=== PATIENT | male | born 1970 | race Caucasian/White ===

== ENCOUNTER 2019-06-20 13:36 | Inpatient (IN) | payer BC ==
[2019-06-20] MEDS ORDERED: HYDROmorphone 0.5 MG/0.5 ML Syringe IVPUSH ONE (14:16)
--- NOTE | 2019-06-20 14:18 | EDM.PDOC ---
ED HPI GENERAL MEDICAL PROBLEM - General Chief Complaint: Abdominal Pain Stated Complaint: ABDOMINAL PAIN Time Seen by Provider: 06/20/19 14:00 Source of Information: Reports: Patient, Family History Limitations: Reports: No Limitations - History of Present Illness INITIAL COMMENTS - FREE TEXT/NARRATIVE: 49-year-old male with generalized abdominal pain, back pain, nausea and lightheaded. Pain is radiating up into the chest and is generalized abdominal pain. It started yesterday, however he fell off a ladder onto his side before the symptoms started but he did not volunteer that information until after the CAT scan. He is otherwise generally healthy. No nausea or vomiting, no diarrhea , no fever, he has some pain with breathing. No shortness of breath. Onset: Gradual (Symptoms have developed over the past 2-3 days) Associated Symptoms: Reports: Chest Pain, Malaise (Some pain radiating up from the abdomen to the chest). Denies: Confusion, Nausea/Vomiting Abdomen Pain Score (Numeric/FACES): 10 - Related Data Allergies Allergy/AdvReac Type Severity Reaction Status Date / Time latex Allergy Cannot Verified 06/20/19 13:54 Remember Home Meds: Home Meds Omeprazole 20 mg PO BID 02/17/14 [History] Past Medical History Gastrointestinal History: Reports: GERD Social & Family History - Tobacco Use Smoking Status *Q: Current Every Day Smoker Years of Tobacco use: 32 Packs/Tins Daily: 1 - Caffeine Use Caffeine Use: Reports: Coffee - Recreational Drug Use Recreational Drug Use: No ED ROS GENERAL - Review of Systems Review Of Systems: See Below Constitutional: Reports: Chills, Malaise. Denies: Fever HEENT: Reports: No Symptoms Respiratory: Reports: Pleuritic Chest Pain Cardiovascular: Reports: Chest Pain GI/Abdominal: Reports: Abdominal Pain, Nausea. Denies: Constipation, Diarrhea, Vomiting Musculoskeletal: Reports: Back Pain, Other (Left posterior chest pain) Neurological: Reports: Dizziness. Denies: Headache Psychiatric: Reports: No Symptoms ED EXAM, GI/ABD - Physical Exam Exam: See Below Exam Limited By: No Limitations General Appearance: Alert, Moderate Distress Eyes: Bilateral: Normal Appearance Head: Atraumatic Neck: Supple Respiratory/Chest: Rales (Bibasilar rales, decreased breath sounds on the left base) Cardiovascular: Regular Rate, Rhythm, Tachycardia (Mild tachycardia) GI/Abdominal Exam: Abnormal Bowel Sounds (hypoactive) Back Exam: Other (There is an abrasion on the right flank, and marked tenderness to palpation over the left flank and posterior chest with areas of crepitus) Extremities: Other (Superficial plaques of chronic psoriasis, also has tenderness of the anterior lateral aspect of the proximal left thigh but no significant bruising) Neurological: Alert, Oriented, No Motor/Sensory Deficits Psychiatric: Anxious Skin Exam: Warm, Dry, Other (Somewhat pasty complexion, mild diaphoresis) Course - Vital Signs Last Recorded V/S: Last Vital Signs Temp 100.3 F 06/21/19 08:01 Pulse 113 H 06/21/19 08:01 Resp 17 06/21/19 08:01 BP 126/72 06/21/19 08:01 Pulse Ox 91 L 06/21/19 06:00 - Orders/Labs/Meds Orders: Active Orders 24 hr Category Date Time Status PATIENT RETYPE [BBK] Stat Lab 06/20/19 14:28 Results RED BLOOD CELLS LP [BBK] Stat Lab 06/20/19 14:28 Results TYPE AND SCREEN [BBK] Stat Lab 06/20/19 14:28 Results Medication Orders Diphenhydramine HCl (Benadryl) 25 mg IVPUSH Q6H PRN PRN Reason: Itching Diphenhydramine HCl (Benadryl) 25 mg PO Q6H PRN PRN Reason: Itching Hydromorphone HCl (Dilaudid [place] 15 Mg In Ns 30 Ml) 15 mg IV ASDIRECTED KARLA; Protocol Last Admin: 06/20/19 18:12 Dose: 15 mg Dextrose/Lactated Ringer's (Dextrose 5%-Lactated Ringers) 1,000 mls @ 100 mls/ hr IV ASDIRECTED KARLA Last Admin: 06/21/19 02:43 Dose: 100 mls/hr Infusion: 06/21/19 02:43 Dose: 100 mls/hr Admin: 06/20/19 18:10 Dose: 100 mls/hr Lactated Ringer's (Ringers, Lactated) 1,000 mls @ 50 mls/hr IV ASDIRECTED KARLA Last Admin: 06/21/19 05:06 Dose: 150 mls/hr Infusion: 06/21/19 00:52 Dose: 150 mls/hr Admin: 06/20/19 18:11 Dose: 150 mls/hr Naloxone HCl (Narcan) 0.04 mg IVPUSH Q3M PRN PRN Reason: Respiratory Depression Nicotine (Habitrol) 21 mg TRDERM DAILY KARLA Last Admin: 06/20/19 18:15 Dose: 21 mg Ondansetron HCl (Zofran) 4 mg IVPUSH Q6H PRN PRN Reason: Nausea/Vomiting Last Admin: 06/21/19 06:31 Dose: 4 mg Labs: Laboratory Tests 06/20/19 06/20/19 06/20/19 Range/Units 14:28 14:28 14:28 WBC 13.5 H (4.5-11.0) K/uL RBC 3.77 L (4.30-5.90) M/uL Hgb 11.7 L (12.0-15.0) g/dL Hct 34.5 L (40.0-54.0) % MCV 92 (80-98) fL MCH 31 (27-31) pg MCHC 34 (32-36) % Plt Count 247 (150-400) K/uL Neut % (Auto) 84 H (36-66) % Lymph % (Auto) 5 L (24-44) % George % (Auto) 11 H (2-6) % Eos % (Auto) 0 L (2-4) % Baso % (Auto) 0 (0-1) % Sodium 133 L (140-148) mmol/L Potassium 5.3 H (3.6-5.2) mmol/L Chloride 96 L (100-108) mmol/L Carbon Dioxide 21 (21-32) mmol/L Anion Gap 21.3 H (5.0-14.0) mmol/L BUN 29 H (7-18) mg/dL Creatinine 3.7 H* (0.8-1.3) mg/dL Est Cr Clr Drug Dosing 26.22 mL/min Estimated GFR (MDRD) 17 L (>60) Glucose 169 H (74-106) mg/dL Lactic Acid 3.7 H (0.4-2.0) mmol/L Calcium 7.9 L (8.5-10.1) mg/dL Total Bilirubin 0.3 (0.2-1.0) mg/dL AST 80 H (15-37) U/L ALT 49 (12-78) U/L Alkaline Phosphatase 65 (46-116) U/L Total Protein 6.9 (6.4-8.2) g/dL Albumin 3.6 (3.4-5.0) g/dL Globulin 3.3 (2.3-3.5) g/dL Albumin/Globulin Ratio 1.1 L (1.2-2.2) Amylase 16 L (25-115) U/L Lipase 104 (73-393) U/L Blood Type Gel Antibody Screen Crossmatch 06/20/19 Range/Units 14:28 WBC (4.5-11.0) K/uL RBC (4.30-5.90) M/uL Hgb (12.0-15.0) g/dL Hct (40.0-54.0) % MCV (80-98) fL MCH (27-31) pg MCHC (32-36) % Plt Count (150-400) K/uL Neut % (Auto) (36-66) % Lymph % (Auto) (24-44) % George % (Auto) (2-6) % Eos % (Auto) (2-4) % Baso % (Auto) (0-1) % Sodium (140-148) mmol/L Potassium (3.6-5.2) mmol/L Chloride (100-108) mmol/L Carbon Dioxide (21-32) mmol/L Anion Gap (5.0-14.0) mmol/L BUN (7-18) mg/dL Creatinine (0.8-1.3) mg/dL Est Cr Clr Drug Dosing mL/min Estimated GFR (MDRD) (>60) Glucose (74-106) mg/dL Lactic Acid (0.4-2.0) mmol/L Calcium (8.5-10.1) mg/dL Total Bilirubin (0.2-1.0) mg/dL AST (15-37) U/L ALT (12-78) U/L Alkaline Phosphatase (46-116) U/L Total Protein (6.4-8.2) g/dL Albumin (3.4-5.0) g/dL Globulin (2.3-3.5) g/dL Albumin/Globulin Ratio (1.2-2.2) Amylase (25-115) U/L Lipase (73-393) U/L Blood Type O POSITIVE Gel Antibody Screen Negative Crossmatch See Detail Meds: Medications Generic Name Dose Route Start Last Admin Trade Name Julia PRN Reason Stop Dose Admin Diphenhydramine HCl 25 mg 06/20/19 18:02 Benadryl IVPUSH Q6H PRN Itching Diphenhydramine HCl 25 mg 06/20/19 18:02 Benadryl PO Q6H PRN Itching Hydromorphone HCl 15 mg 06/20/19 18:15 06/20/19 18:12 Dilaudid [place] 15 Mg In Ns 30 Ml IV 15 mg ASDIRECTED KARLA Administration Protocol Dextrose/Lactated Ringer's 1,000 mls @ 100 mls/hr 06/20/19 18:00 06/21/19 02: 43 Dextrose 5%-Lactated Ringers IV 100 mls/hr ASDIRECTED KARLA Administration Lactated Ringer's 1,000 mls @ 50 mls/hr 06/20/19 18:00 06/21/19 05:06 Ringers, Lactated IV 150 mls/hr ASDIRECTED KARLA Administration Naloxone HCl 0.04 mg 06/20/19 18:02 Narcan IVPUSH Q3M PRN Respiratory Depression Nicotine 21 mg 06/20/19 18:00 06/20/19 18:15 Habitrol TRDERM 21 mg DAILY KARLA Administration Ondansetron HCl 4 mg 06/20/19 18:02 06/21/19 06:31 Zofran IVPUSH 4 mg Q6H PRN Administration Nausea/Vomiting Discontinued Medications Generic Name Dose Route Start Last Admin Trade Name Julia PRN Reason Stop Dose Admin Dexamethasone Confirm 06/21/19 08:00 Dexamethasone Administered 06/21/19 08:01 Dose 4 mg .ROUTE .STK-MED ONE Fentanyl Confirm 06/21/19 08:00 Sublimaze Administered 06/21/19 08:01 Dose 250 mcg .ROUTE .STK-MED ONE Glycopyrrolate Confirm 06/21/19 08:00 Robinul Administered 06/21/19 08:01 Dose 1 mg .ROUTE .STK-MED ONE Hydromorphone HCl 0.5 mg 06/20/19 14:16 06/20/19 14:25 Dilaudid IVPUSH 06/20/19 14:17 0.5 mg ONETIME ONE Administration Hydromorphone HCl 1 mg 06/20/19 14:48 06/20/19 15:04 Dilaudid IVPUSH 06/20/19 14:49 1 mg ONETIME ONE Administration Hydromorphone HCl 1 mg 06/20/19 16:08 06/20/19 16:34 Dilaudid IV 06/20/19 18:00 1 mg Q2H PRN Administration PAIN Sodium Chloride 1,000 mls @ 1,000 mls/hr 06/20/19 14:30 06/20/19 15:37 Normal Saline IV 1,000 mls/hr ASDIRECTED KARLA Administration Sodium Chloride 100 mls @ 3 mls/sec 06/20/19 15:00 06/21/19 05:33 Normal Saline IV 06/20/19 18:00 3 mls/sec ASDIRECTED KARLA Administration Sodium Chloride 1,000 mls @ 1,000 mls/hr 06/20/19 15:45 06/20/19 16:43 Normal Saline IV 1,000 mls/hr ASDIRECTED KARLA Administration Dextrose/Lactated Ringer's 1,000 mls @ 150 mls/hr 06/20/19 17:45 Dextrose 5%-Lactated Ringers IV ASDIRECTED KARLA Sodium Chloride 76 mls @ 3 mls/sec 06/21/19 05:19 Normal Saline IV 06/21/19 05:20 ASDIRECTED STA Iodixanol 100 ml 06/21/19 05:18 06/21/19 05:33 Visipaque 320 IV 06/21/19 05:19 100 ml . DIRECTED STA Administration Iopamidol 150 ml 06/20/19 15:00 Isovue-300 (61%) IV 06/20/19 17:00 . DIRECTED KARLA Neostigmine Methylsulfate Confirm 06/21/19 08:00 Neostigmine Administered 06/21/19 08:01 Dose 5 mg .ROUTE .STK-MED ONE Ondansetron HCl Confirm 06/21/19 08:00 Zofran Administered 06/21/19 08:01 Dose 4 mg .ROUTE .STK-MED ONE Propofol Confirm 06/21/19 08:00 Diprivan 20 Ml Administered 06/21/19 08:01 Dose 200 mg .ROUTE .STK-MED ONE Rocuronium Dennehotso Confirm 06/21/19 08:00 Zemuron Administered 06/21/19 08:01 Dose 50 mg .ROUTE .STK-MED ONE Sodium Chloride 10 ml 06/20/19 15:00 06/20/19 17:02 Saline Flush FLUSH 06/20/19 15:01 Not Given ONETIME ONE Succinylcholine Chloride Confirm 06/21/19 08:00 Quelicin Administered 06/21/19 08:01 Dose 200 mg .ROUTE .STK-MED ONE - Re-Assessments/Exams Free Text/Narrative Re-Assessment/Exam: 06/20/19 15:45 IV was started, 1 L of normal saline was bolused and the patient was given 4 mg of Zofran and 0.5 mg of IV Dilaudid. CBC, CMP, amylase and lipase were obtained. An urgent abdominal CT scan without contrast was performed and he was found to have a splenic laceration with right posterior rib fractures. The patient then admitted he had fallen off of a ladder yesterday from a height of 6 to 7 feet. A trauma activation was then initiated. A second IV started. 06/20/19 15:48 Hemoglobin returned 13.7, kidney function showed acute kidney injury with a creatinine of 3.7 and GFR of 17. A CT with IV contrast will need to be repeated but he needs aggressive hydration initially and this was discussed with Dr. Morales. Patient will be hydrated aggressively over the next 2 hours, renal function and CBC will then be repeated. An additional milligram of IV Dilaudid was given for pain control and the patient was transferred to ICU. 2 units of red blood cells were typed and crossed anticipating anemia from ongoing blood loss or volume replacement with IV fluids. Departure - Departure Time of Disposition: 16:35 Disposition: Admitted As Inpatient 65 Clinical Impression: Contusion of thigh, left, Acute kidney injury Splenic laceration Qualifiers: Encounter type: initial encounter Qualified Code(s): S36.039A - Unspecified laceration of spleen, initial encounter Multiple fractures of ribs of left side Qualifiers: Encounter type: initial encounter Fracture type: closed Qualified Code(s): S22.42XA - Multiple fractures of ribs, left side, initial encounter for closed fracture - Discharge Information Sepsis Event Note - Evaluation Sepsis Screening Result: Possible Sepsis Risk - Focused Exam Date Exam was Performed: 06/21/19 Time Exam was Performed: 08:06 - My Orders Last 24 Hours: My Active Orders 06/20/19 14:28 PATIENT RETYPE [BBK] Stat RED BLOOD CELLS LP [BBK] Stat TYPE AND SCREEN [BBK] Stat - Assessment/Plan Last 24 Hours: My Active Orders 06/20/19 14:28 PATIENT RETYPE [BBK] Stat RED BLOOD CELLS LP [BBK] Stat TYPE AND SCREEN [BBK] Stat
[2019-06-20] MEDS: Sodium Chloride 0.9% 1,000 ML IV SCH ×2 (14:38→15:37)
[2019-06-20] MEDS ORDERED: HYDROmorphone 1 MG/ML Syringe IVPUSH ONE (14:48)
[2019-06-20] MEDS ORDERED: Sodium Chloride 0.9% 100 ML IV SCH (15:00)
[2019-06-20] MEDS ORDERED: Sodium Chloride 0.9% 10 ML Syringe FLUSH ONE (15:00)
[2019-06-20] MEDS ORDERED: Iopamidol 612 MG/ML 150 ML Bottle IV SCH (15:00)
--- NOTE | 2019-06-20 15:09 | CT ---
Abdomen Pelvis wo Cont CLINICAL HISTORY: Abdominal pain COMPARISON: None. TECHNIQUE: Axial tomographic images are obtained from the dome of the diaphragm to the pubic symphysis without IV contrast enhancement. No oral contrast was used. Auto dosage reduction and iterative reconstruction techniques employed. FINDINGS: The lung bases show patchy airspace disease bilaterally which is likely atelectasis from splinting. Patient has displaced fractures of the left the eighth, seventh and sixth ribs. There is emphysema in the chest wall. There is no evidence of pneumothorax. The liver has a normal contour. There is moderate peritoneal fluid with the increased density. This is felt to represent moderate to hemoperitoneum.. The gallbladder has a normal contour. The spleen is poorly defined and heterogeneous. There is likely splenic laceration or fracture. The pancreas appears normal. The retroperitoneal fat planes are fairly well preserved. The adrenal glands have a normal appearance. The kidneys show no stones or hydronephrosis. Nephric fat is ill-defined.. The aorta shows some atheromatous plaque without aneurysm. There is no suspicious retroperitoneal adenopathy. Bladder has a normal contour. IMPRESSION: Moderate abdominal pelvic hemoperitoneum Heterogeneous ill-defined spleen is likely due to splenic laceration. Postcontrast CT imaging is recommended Multiple left lateral rib fractures with air in the chest wall. There is no visible pneumothorax or hemothorax. Bibasal airspace disease is most likely atelectasis from splinting
[2019-06-20] MEDS ORDERED: Sodium Chloride 0.9% 1,000 ML IV SCH (15:45)
[2019-06-20] MEDS ORDERED: HYDROmorphone 1 MG/ML Syringe IV PRN (16:08)
[2019-06-20] MEDS ORDERED: Dextrose 5%-Lactated Ringers 1,000 ML IV SCH (17:45)
[2019-06-20] MEDS ORDERED: Naloxone 0.4 MG/ML SDV IVPUSH PRN (18:02)
[2019-06-20] MEDS ORDERED: diphenhydrAMINE 25 MG Cap PO PRN (18:02)
[2019-06-20] MEDS ORDERED: diphenhydrAMINE 50 MG/ML SDV IVPUSH PRN (18:02)
[2019-06-20] MEDS: Dextrose 5%-Lactated Ringers 1,000 ML IV SCH (18:10)
[2019-06-20] MEDS: Lactated Ringers 1,000 ML IV SCH (18:11)
[2019-06-20] MEDS: HYDROmorphone/Normal Saline 15 MG/30 ML PCA IV SCH (18:12)
[2019-06-20] MEDS: Nicotine 21 MG/24 Hr Patch TRDERM SCH (18:15)
[2019-06-21] MEDS: Dextrose 5%-Lactated Ringers 1,000 ML IV SCH ×3 (02:43→22:17)
[2019-06-21] MEDS: Lactated Ringers 1,000 ML IV SCH (05:06)
[2019-06-21] MEDS ORDERED: Iodixanol 652 MG/ML 100 ML Bottle IV STA (05:18)
[2019-06-21] MEDS: Ondansetron 4 MG/2 ML SDV IVPUSH PRN ×3 (06:31→20:11)
--- NOTE | 2019-06-21 06:44 | CRLCT ---
INDICATION: Follow-up splenic injury after fall. COMPARISON: None. TECHNIQUE: CT abdomen and pelvis with IV contrast. 100 cc of IV Omnipaque 300. FINDINGS: Left chest wall subcutaneous emphysema. Left 4th through 8th rib fractures. Bibasilar atelectasis/consolidation. Right lower lobe pulmonary nodule measuring 11 mm (series 2 image 1). The liver, gallbladder, pancreas adrenal glands are unremarkable. Heterogeneous hypoattenuating enhancement of the spleen with adjacent hyperdense hematoma formation involving greater than 50 percent of the surface area rib. The hematoma measures approximately 11 x 4.8 cm (series 2 image 63). Blood products extend is inferiorly along the pericolic gutter, and there is hemoperitoneum, with hyperdense/bloody ascites in the pelvis. Perihepatic hyperdense ascites/hemoperitoneum is also noted. Hansen catheter is present in the bladder. Fat containing inguinal hernias. No evidence of bowel obstruction. No lymphadenopathy in the abdomen or pelvis. Appendix is normal. Atherosclerosis of the abdominal aorta which is nonaneurysmal. Kidneys enhance symmetrically. No obstructing renal calculus or hydronephrosis. Degenerative changes at L5-S1 in the spine. IMPRESSION: 1. Splenic injury, with large hematoma, and blood products/hemoperitoneum extending into the pelvis. Spleen injury is at minimum a grade 3, possibly grade 4. 2. Multiple left rib fractures with left chest wall subcutaneous emphysema. 3. Bibasilar atelectasis/consolidation. 4. Right lower lobe pulmonary nodule measuring 11 mm. Recommend nonurgent evaluation chest CT. Alternative considerations include PET-CT or tissue sampling. Findings discussed with Dr. Morales at 6:40 a.m. on 06/21/2019. Please note that all CT scans at this facility use dose modulation, iterative reconstruction, and/or weight-based dosing when appropriate to reduce radiation dose to as low as reasonably achievable. Dictated by Choco Palmer MD @ Jun 21 2019 6:30AM Signed by Dr. Choco Palmer @ Jun 21 2019 6:42AM
[2019-06-21] MEDS ORDERED: Dexamethasone 4 MG/ML SDV ONE (08:00)
[2019-06-21] MEDS ORDERED: Neostigmine Methylsulfate 1 MG/ML 5 ML Syringe ONE (08:00)
[2019-06-21] MEDS ORDERED: Succinylcholine 200 MG/10 ML MDV ONE (08:00)
[2019-06-21] MEDS ORDERED: Glycopyrrolate 0.2 MG/ML 5 ML MDV ONE (08:00)
[2019-06-21] MEDS ORDERED: Propofol 200 MG/20 ML SDV ONE (08:00)
[2019-06-21] MEDS ORDERED: Rocuronium 50 MG/5 ML Vial ONE (08:00)
[2019-06-21] MEDS ORDERED: fentaNYL 250 MCG/5 ML SDV ONE (08:00)
[2019-06-21] MEDS ORDERED: Ondansetron 4 MG/2 ML SDV ONE (08:00)
[2019-06-21] MEDS ORDERED: Bupivacaine 0.5% 50 ML MDV ONE (08:29)
[2019-06-21] MEDS ORDERED: Lidocaine 1% with EPINEPHrine 1:100,000 50 ML MDV ONE (08:29)
[2019-06-21] MEDS ORDERED: Meropenem 500 MG SDV ONE (09:21)
[2019-06-21] MEDS ORDERED: Dextrose 5%-Lactated Ringers 1,000 ML IV SCH (10:00)
[2019-06-21] MEDS ORDERED: Ketamine 500 MG/5 ML MDV IV SCH (10:30)
[2019-06-21] MEDS ORDERED: Ketamine 50 MG in Sodium Chloride 0.9% 49.5 ML IV SCH (10:30)
[2019-06-21] MEDS ORDERED: ceFAZolin 2 GM in Premix Bag 1 BAG IV ONE (10:30)
[2019-06-21] MEDS: HYDROmorphone/Normal Saline 15 MG/30 ML PCA IV SCH (10:57)
--- NOTE | 2019-06-21 11:48 | CR ---
Abdomen 1V CLINICAL HISTORY: NG tube placement FINDINGS: Upright view of the chest and upper abdomen show an NG tube in the stomach. There is diffuse gaseous distention of small bowel and colon. There is patchy bilateral lower lobe infiltrates IMPRESSION: NG tube in the stomach Moderate gaseous distention of small bowel loops may represent ileus Bibasal infiltrates
[2019-06-21] MEDS ORDERED: Tranexamic Acid 1,000 MG in Sodium Chloride 0.9% 50 ML IV ONE (13:00)
[2019-06-21] MEDS ORDERED: Sodium Chloride 0.9% 250 ML ONE (13:18)
[2019-06-21] MEDS ORDERED: Sodium Chloride 0.9% 500 ML ONE (13:18)
--- NOTE | 2019-06-21 14:24 | CR ---
CHEST: Portable to 09/05/2019 at 2:01 PM CLINICAL HISTORY:Splenectomy COMPARISON:Flat plate earlier same day FINDINGS: Patient has an NG tube in place. There is less than optimal inspiration. There is patchy bibasal airspace disease. There is no significant pleural effusion or pneumothorax. There is a surgical drain in the left upper quadrant. There is persistent subcutaneous air in the left lateral chest wall. Patient has known left rib fractures Impression: NG tube in the stomach Surgical drain left upper quadrant. Patchy bibasal atelectasis without significant effusion or pneumothorax
[2019-06-21] MEDS: Pantoprazole 40 MG Vial IV SCH (15:21)
[2019-06-21] MEDS ORDERED: hydrOXYzine HCL 100 MG/2 ML SDV IM PRN (15:23)
[2019-06-21] MEDS: Nicotine 21 MG/24 Hr Patch TRDERM SCH (16:56)
[2019-06-21] MEDS: ceFAZolin 2 GM in Premix Bag 1 BAG IV SCH (18:26)
[2019-06-22] MEDS: ceFAZolin 2 GM in Premix Bag 1 BAG IV SCH ×2 (02:33→10:47)
[2019-06-22] MEDS: Dextrose 5%-Lactated Ringers 1,000 ML IV SCH ×2 (05:38→15:45)
[2019-06-22] MEDS: Nicotine 21 MG/24 Hr Patch TRDERM SCH (08:08)
--- NOTE | 2019-06-22 09:09 | CR ---
CHEST: Portable to 06/22/2019 at 0422 CLINICAL HISTORY:Atelectasis, splenectomy COMPARISON:06/21/2019 FINDINGS: Patient is an NG tube in the stomach. There is persistent airspace disease in left lower lobe which has increased since prior study. There appears to be a small left effusion at this time. There is also some right lower lobe airspace disease. . Patient has multiple left rib fractures. Patient has undergone recent splenectomy with a drain in the left upper quadrant. IMPRESSION: Increased airspace is disease in the left lower lobe with persistent airspace disease in the right lower lobe. This most likely represents the atelectasis from splinting. Small left effusion
[2019-06-22] MEDS: HYDROmorphone/Normal Saline 15 MG/30 ML PCA IV SCH (09:51)
[2019-06-22] MEDS: Potassium Phos in 0.9 % NaCl 15 MMOL in Premix Bag 1 BAG IV SCH ×6 (11:36→17:50)
[2019-06-22] MEDS: Piperacillin/Tazobactam/Dext 3.375 GM in Premix Bag 1 BAG IV SCH ×2 (12:38→17:38)
[2019-06-22] MEDS: Linezolid 600 MG in Premix Bag 1 BAG IV SCH (14:22)
[2019-06-22] MEDS: Pantoprazole 40 MG Vial IV SCH (15:28)
[2019-06-22] MEDS: Ondansetron 4 MG/2 ML SDV IVPUSH PRN (17:12)
[2019-06-22] MEDS: diphenhydrAMINE 50 MG/ML SDV IVPUSH PRN (20:46)
[2019-06-23] MEDS: Piperacillin/Tazobactam/Dext 3.375 GM in Premix Bag 1 BAG IV SCH ×4 (00:01→18:12)
[2019-06-23] MEDS: Dextrose 5%-Lactated Ringers 1,000 ML IV SCH ×4 (00:01→22:51)
[2019-06-23] MEDS: Linezolid 600 MG in Premix Bag 1 BAG IV SCH ×2 (01:57→14:37)
[2019-06-23] MEDS: Potassium Phos in 0.9 % NaCl 15 MMOL in Premix Bag 1 BAG IV SCH ×6 (07:32→12:31)
[2019-06-23] MEDS: Acetaminophen 500 MG Tab PO SCH ×3 (08:13→20:15)
[2019-06-23] MEDS: Nicotine 21 MG/24 Hr Patch TRDERM SCH (08:13)
[2019-06-23] MEDS: Docusate Sodium 100 MG Cap PO SCH ×2 (08:13→20:16)
[2019-06-23] MEDS: Bisacodyl 5 MG Tab PO SCH ×2 (08:13→20:25)
[2019-06-23] MEDS: Metoclopramide 10 MG/2 ML SDV IVPUSH SCH ×3 (08:13→20:15)
[2019-06-23] MEDS: Ibuprofen 600 MG Tab PO SCH ×3 (10:10→21:55)
--- NOTE | 2019-06-23 10:20 | PN ---
DATE OF SERVICE: 06/22/2019 The patient had a T-max 100.6 yesterday and now it is down in the 99 range. O2 sats on 4 L nasal cannula are 93%. He still has a fair bit of productive cough. Chest x-ray does show some basilar atelectasis on the left side as one would expect. There is no evidence of any recurrent pneumothorax. NG output has been moderate. He has been on ice chips, but output overall is around 150 mL. He is maybe taking in 500 mL of ice chips, and so we will leave that in place for today. Urine output is quite good and creatinine is down to 1.0. Otherwise labs show a hemoglobin of 10.4. Phosphate is marginally low. We will give him some potassium phosphate today IV. Otherwise back down the IV rate, and at this point the main goal will be to work on pulmonary toilet and pain control with regard to the rib fractures and the abdominal incision. Georges Morales MD /[id number]
[2019-06-23] MEDS: diphenhydrAMINE 50 MG/ML SDV IVPUSH PRN (14:44)
--- NOTE | 2019-06-23 15:13 | PN ---
DATE OF SERVICE: 06/23/2019 The patient has developed a fever up in the 102 range yesterday afternoon and appears clinically, most likely, to have pneumonia. He has quite a bit of productive sputum. The gram stain from the sputum culture showed many wbc's and many gram-positive cocci. He presently is empirically on Zosyn and Zyvox. We will adjust those antibiotics as sensitivities become available, probably tomorrow. Otherwise, he has been hemodynamically stable. O2 sats are in the low 90s on 3 L nasal cannula. His NG tube came out. Given the amount of ice chips that he has taken, probably was not putting that much out, so we will try leaving that out. We will add some Reglan. This will also give us the opportunity to add oral Tylenol and ibuprofen to the pain control regimen. Phosphate is somewhat low, and we will give him some K-Phos today and back down somewhat on the IV rate and maximize activity and work with pulmonary toilet. Georges Morales MD /[id number]
[2019-06-23] MEDS: Pantoprazole 40 MG Vial IV SCH (16:32)
[2019-06-23] MEDS: HYDROmorphone/Normal Saline 15 MG/30 ML PCA IV SCH (18:29)
[2019-06-24] MEDS: Piperacillin/Tazobactam/Dext 3.375 GM in Premix Bag 1 BAG IV SCH ×5 (00:16→23:43)
[2019-06-24] MEDS: Linezolid 600 MG in Premix Bag 1 BAG IV SCH ×2 (01:02→14:06)
[2019-06-24] MEDS: Metoclopramide 10 MG/2 ML SDV IVPUSH SCH ×4 (01:02→20:27)
[2019-06-24] MEDS: Acetaminophen 500 MG Tab PO SCH ×4 (01:03→20:27)
[2019-06-24] MEDS: Ibuprofen 600 MG Tab PO SCH ×4 (03:48→22:22)
[2019-06-24] MEDS: Bisacodyl 5 MG Tab PO SCH ×2 (08:14→20:27)
[2019-06-24] MEDS: Docusate Sodium 100 MG Cap PO SCH ×2 (08:14→20:27)
[2019-06-24] MEDS: Nicotine 21 MG/24 Hr Patch TRDERM SCH (08:15)
--- NOTE | 2019-06-24 12:48 | PN ---
DATE OF SERVICE: 06/24/2019 The patient has been afebrile with stable vital signs. Oxygenation appears to be improving somewhat with O2 sats running in 89 to 90s on room air. Otherwise, urine output has been good and he has not had any flatus or bowel movement as of yet, but we will continue more or less an n.p.o. status. Pain control appeared to be somewhat better. Plan will be to discontinue Hansen catheter and transfer to the second floor today. We will hold on diet until bowels have moved or even passes quite a bit of gas, and then begin the diet at that point.. Otherwise, continue present antibiotics. No followup is noted in terms of his sputum cultures, so we will not fine-tune the antibiotics as of yet. The blood cultures of note are both negative. Otherwise, his labs look good. Georges Morales MD /[id number]
[2019-06-24] MEDS: Pantoprazole 40 MG Vial IV SCH (16:26)
[2019-06-24] MEDS ORDERED: Albuterol/Ipratropium 3.0-0.5 MG/3 ML Neb Soln NEB ONE (21:07)
[2019-06-24] MEDS: LORazepam 2 MG/ML SDV IVPUSH PRN ×2 (21:23→23:41)
[2019-06-25] MEDS: Linezolid 600 MG in Premix Bag 1 BAG IV SCH (01:33)
[2019-06-25] MEDS: Metoclopramide 10 MG/2 ML SDV IVPUSH SCH ×3 (03:17→07:39)
[2019-06-25] MEDS: Acetaminophen 500 MG Tab PO SCH ×2 (03:18→07:39)
[2019-06-25] MEDS: Ibuprofen 600 MG Tab PO SCH (03:18)
[2019-06-25] MEDS: Piperacillin/Tazobactam/Dext 3.375 GM in Premix Bag 1 BAG IV SCH (05:32)
[2019-06-25] MEDS ORDERED: Albuterol/Ipratropium 3.0-0.5 MG/3 ML Neb Soln NEB SCH (07:00)
[2019-06-25] MEDS ORDERED: Levofloxacin 500 MG Tab PO ONE (08:30)
[2019-06-25] MEDS: Bisacodyl 5 MG Tab PO SCH (08:45)
[2019-06-25] MEDS: Nicotine 21 MG/24 Hr Patch TRDERM SCH (08:45)
[2019-06-25] MEDS: Docusate Sodium 100 MG Cap PO SCH (08:45)
--- NOTE | 2019-06-26 12:43 | DISCH ---
FINAL DIAGNOSES: 1. Accidental fall resulting in: a. Multiple left rib fractures (left ribs 4 through 8). b. Probable pneumothorax (resolved at the time of the hospitalization). c. High-grade splenic injury. d. Minor laceration in left lobe of liver. e. Massive hemoperitoneum (3400 mL). 2. History of gastroesophageal reflux disease. 3. Tobacco dependence. 4. Postoperative pneumonia. OPERATIVE PROCEDURE: This was done on 06/21, exploratory laparotomy with evacuation of hemoperitoneum and: 1. Splenectomy. 2. Hepatorrhaphy. SUMMARY: This is a 49-year-old male who two days prior to presenting to the emergency room fell off the ladder onto his left side. It became increasingly uncomfortable and somewhat diaphoretic at times. Presented to the emergency room. Workup revealed a complex splenic injury. His creatinine was initially in the 3's, so IV contrast was not used initially. He was hydrated up and transfused overnight and the following morning his creatinine was down to 1.7. A CT scan was repeated which showed a very complex splenic injury along with the massive hemoperitoneum. He was also noted to have rib fractures, 4 through 8, on the left side and some subcutaneous emphysema. There was no evidence of any pneumothorax at any point during the hospitalization. As expected, he had small pneumothorax that resolved prior to coming to the hospital. Following the surgery, the patient had been hemodynamically stable. He did develop a postoperative pneumonia. The Gram stain showed gram-positive cocci, but the cultures did not grow, otherwise was called "normal upper respiratory mae." This morning, his hemoglobin was 10.2, white count has normalized. He has become afebrile and still having some productive sputum, but that is decreasing. He is tolerating the Tylenol and ibuprofen for pain control. He will be discharged to home on Levaquin 500 mg daily for seven days along with Tylenol 1000 mg q.i.d. p.r.n., and ibuprofen 600 mg q.i.d. p.r.n., and he will be instructed to continue to use the incentive spirometer, Acapella device. We will see him back in [facility] on 06/29/2019 with a CBC to check the hemoglobin level as well as the white blood count given his splenectomy status and chest x- ray to follow up on the pneumonia and rule out problems such as development of a pleural effusion. He will receive his initial immunizations at that appointment.
--- NOTE | 2019-06-27 13:23 | OR ---
DATE OF PROCEDURE: 06/21/2019 SURGEON: Georges Morales MD PREOPERATIVE DIAGNOSIS: Complex splenic injury with large volume hemoperitoneum. POSTOPERATIVE DIAGNOSIS: 1. Complex splenic injury with large volume hemoperitoneum. 2. Minor laceration to lateral aspect of left lobe of liver. OPERATIVE PROCEDURES: Exploratory laparotomy with evacuation of hemoperitoneum and: 1. Splenectomy (35419). 2. Hepatorrhaphy (17903). ANESTHESIA: General. INDICATIONS FOR PROCEDURE: A 49-year-old male, presenting with fall resulting in multiple rib fractures and a complex splenic laceration and large volume hemoperitoneum. Please see progress note dictated earlier. Plan is to proceed with exploratory laparotomy with a probable splenectomy and identification of any other injuries that might be present. DETAILS OF PROCEDURE: The patient was taken to the operating room. After general endotracheal anesthesia was induced, Hansen catheter was inserted, and the abdomen prepped and draped. A midline incision from the xiphoid to the umbilicus was made and carried down through the skin, subcutaneous tissue, fascia, and into the peritoneal cavity. A large amount of hemoperitoneum was identified. We first ascertained that there did not appear to be any significant active bleeding in the area of the spleen. At this point, then, the bloody clots were evacuated. Prior to any irrigation, a total of 3400 mL of blood clots was evacuated, indicating the patient had in excess of 50% volume of blood loss. At this point, the superior and lateral and inferior attachments to the spleen were divided with electrocautery along with blunt dissection. This allowed mobilization of the spleen upward, along with the distal pancreas. The splenic vessels, as well as the short gastric vessels, were then sequentially divided with BRADLY karthikeyan and the spleen delivered from the field. Examination of the spleen showed that the splenic artery and vein had been avulsed more or less at the branch level, i.e. not at the main artery and vein level, but more at the beginning of the substance of the spleen at the branch level. The patient also had 2 nearly full-thickness lacerations, likely associated with imprints of the ribs as they fractured upon fall. At that point, the tail of the pancreas and divided splenic artery and vein were inspected. No significant bleeding was noted. The patient had 1 additional injury noted that was a transverse laceration of the left lobe of the liver. This was not actively bleeding. This was repaired with sutures of 0 Vicryl stitch and augmented with some electrocautery. At that point, the remainder of the abdomen was examined, and no additional injuries were identifiable. The abdomen was irrigated with meropenem-containing saline solution. Two Erasmo-Pool drains were then placed through stab wounds in the left subcostal area. The area of the tail of the pancreas and divided splenic vessels was then reinforced with fibrin sealant and then drains were placed with 1 in the far dependent portion of the splenic fossa and the other more or less across the divided end of the splenic artery and vein and adjacent pancreas. The midline fascia was then approximated with #2 Vicryl stitch and skin with karthikeyan. Dressing was applied. The patient was taken to the recovery room in satisfactory condition. Prior to closure, the patient had bilateral transversus abdominis plane blocks placed also and was taken to the recovery room in satisfactory condition. He received 2 additional packed RBCs during the course of the procedure. Georges Morales MD /[id number]
--- NOTE | 2019-06-27 13:59 | PN ---
DATE OF SERVICE: 06/21/2019 This is a 49-year-old who fell 2 days ago on his left side. He did not come in into the hospital until yesterday afternoon having been brought by his after feeling quite weak and ill. Workup included a CT scan of the chest and abdomen which included 5 fractured ribs 4 through 8 on the left side, and a significantly large hemoperitoneum. His creatinine initially was in the 3 range and it was felt not safe to give the IV contrast at that point. The patient has remained hemodynamically stable overnight, receiving some transfusions. A 2nd CT was obtained this morning with his creatinine having gone down to 1.7 and the large urine output being established, and it was felt at that point safe to give the IV contrast. This showed a very complex splenic laceration, grade 3 to grade 4 per the radiologist, and a significant increase in the amount of hemoperitoneum appears to be evident on comparison to the previous CT scans. There was also some subcutaneous air seen which would be indicative of the patient having at least previously a pneumothorax. No pneumothorax could be seen on either CT scans, so I suspect he had 1 at the initial entry point which is now sealed, and the air within the pleural space has been resorbed leaving only the subcutaneous air present along the left chest wall. The patient's hemoglobin presently is 8.5, and with him being hemodynamically stable at this point, I think the plan will be to proceed with transfusion with 2 additional units of packed RBCs, and then proceed with an open laparotomy and probable splenectomy. The patient is already developing significant atelectasis. He is a heavy smoker and would be at risk for significant pulmonary complications given the rib fractures. Given this, we will probably proceed with a splenectomy which will allow early mobilization without concern of additional splenic bleeding. The potential risks of the procedure were reviewed with the patient and his who is 1 of the [facility] nurses and they wished to proceed. The surgery will be undertaken later on this morning after the 2 units of packed RBCs have been infused. With regard to the potential pneumothorax, Anesthesia was advised of this and will have a chest tube available in the operating room and prep the left side of the chest as well as the abdomen in the event that there are any signs of tension pneumothorax developing intraoperatively at which time a chest tube would be placed. Georges Morales MD /[id number]
== END 2019-06-25 09:28 | disposition home or self-care (01) | DRG 911 ==
LOC: JP.ED 13:36 → JP.ICU 15:48 → JP.MS 06-24 09:03
PROVIDERS: ADMIT Surgery; ATTEND Physician Assistant Medical
PROC: 07BP0ZZ Excision of Spleen, Open Approach (ICD-10-PCS; principal; 2019-06-21)
PROC: 0FQ20ZZ Repair Left Lobe Liver, Open Approach (ICD-10-PCS; 2019-06-21)
PROC: 0DCW0ZZ Extirpation of Matter from Peritoneum, Open Approach (ICD-10-PCS; 2019-06-21)
DX: S36.039A Unspecified laceration of spleen, initial encounter (principal); S22.42XA Multiple fractures of ribs, left side, initial encounter for closed fracture; S36.114A Minor laceration of liver, initial encounter; S27.0XXA Traumatic pneumothorax, initial encounter; W11.XXXA Fall on and from ladder, initial encounter; K21.9 Gastro-esophageal reflux disease without esophagitis; F17.210 Nicotine dependence, cigarettes, uncomplicated; S70.12XA Contusion of left thigh, initial encounter; N17.9 Acute kidney failure, unspecified; J95.89 Other postprocedural complications and disorders of respiratory system, not elsewhere classified; J98.11 Atelectasis; K66.1 Hemoperitoneum; T79.7XXA Traumatic subcutaneous emphysema, initial encounter; R91.1 Solitary pulmonary nodule; Z91.040 Latex allergy status; Z79.899 Other long term (current) drug therapy; Y93.89 Activity, other specified; Y92.89 Other specified places as the place of occurrence of the external cause
CPT/HCPCS: 36415; 36430; 51701; 51702; 51703; 71045; 71045-26; 74018; 74018-26; 74176; 74176-26; 74177; 80048; 80053; 81001; 82150; 82565; 83605; 83690; 83735; 84100; 85025; 85027; 85610; 86850; 86900; 86901; 86920; 86922; 87040; 87070; 87205; 88305; 94640; 94667; 94762; 96361; 96374; 96376; 99285-25; A9270-GY; C9113; J0171; J0330; J0690; J1100; J1170; J1200; J2020; J2060; J2185; J2405; J2543; J2704; J2710; J2765; J2795; J3010; J3490; J7030; J7040; J7050; J7120; J7121; J7620-GY; P9016

== ENCOUNTER 2021-02-04 06:22 | Day surgery (SDC) | payer BC ==
[2021-02-04] MEDS ORDERED: fentaNYL 100 MCG/2 ML SDV ONE (07:09)
[2021-02-04] MEDS ORDERED: Midazolam 1 MG/ML 2 ML SDV ONE (07:09)
[2021-02-04] MEDS ORDERED: Propofol 200 MG/20 ML SDV ONE ×2 (07:09→07:48)
[2021-02-04] MEDS ORDERED: Lactated Ringers 1,000 ML IV SCH (07:30)
[2021-02-04] MEDS ORDERED: Glycopyrrolate 0.2 MG/ML 2 ML SDV IVPUSH ONE (07:30)
--- NOTE | 2021-02-11 21:30 | OR ---
DATE OF PROCEDURE: 02/04/2021 SURGEON: Georges Morales MD PREOPERATIVE DIAGNOSES: 1. History of Buck's esophagus. 2. Indications for screening colonoscopy. OPERATIVE PROCEDURE: 1. Esophagogastroduodenoscopy with: a. Biopsies of esophagogastric junction. b. Biopsies of antrum for CLOtest. 2. Flexible colonoscopy. ANESTHESIA: IV sedation. INDICATION FOR PROCEDURE: The patient is presenting for a followup upper endoscopy for surveillance of Buck's esophagus. Presently, he is on 40 mg of omeprazole daily and with this has good symptom control. Also meets criteria for screening colonoscopy with biopsies and/or polypectomy as indicated. Potential risks of the procedure including bleeding and perforation were discussed and the patient wishes to proceed. DETAILS OF PROCEDURE: The patient was taken to the operating room, placed in a left lateral decubitus position. IV sedation was administered after which the upper GI endoscope was passed orally through the length of the esophagus, into the stomach with retroflexion view of the fundus, and thereafter through the pyloric channel, and into the proximal duodenum. Findings included normal hypopharynx, larynx, upper esophageal sphincter, and esophageal body. At the EG junction, a moderate hiatal hernia measuring 2 or 3 cm was present. This was associated with minimal inflammation at esophagogastric junction. There was some upward extension of the gastroesophageal junction mucosal line consistent with history of Buck's esophagus. No plaquing, stricturing, or other signs of neoplastic change were noted. The remainder of the stomach and duodenum to the junction of the third and fourth portions were unremarkable. At this point, biopsies were obtained from the antrum and sent for CLOtest to assess the patient's H. pylori status. Multiple biopsies were obtained from the area of the esophagogastric junction focusing on the areas of columnar mucosa. Minimal bleeding from the biopsy sites was seen and the procedure then concluded. Attention was then taken to the colonoscopy. Initial digital rectal exam was performed, it was unremarkable. Colonoscope was then passed into the rectum with retroflexion revealing uncomplicated hemorrhoidal columns. The scope was then eventually passed to the cecum. The prep was good, only a small amount of liquid stool was present. To that level, no abnormalities were noted. There were no diverticula, no areas of colitis, no polyps or other signs of neoplasia. The scope was then withdrawn, the above findings reconfirmed, and the procedure then concluded. Recommendation would be to repeat the upper endoscopy in 2 years for surveillance of Buck's esophagus and a colonoscopy in 10 years. Georges Morales MD /[id number]
== END 2021-02-04 09:38 | disposition home or self-care (01) ==
LOC: JP.SDS 06:22
PROVIDERS: ATTEND Surgery
DX: Z12.11 Encounter for screening for malignant neoplasm of colon (principal); K22.70 Barrett's esophagus without dysplasia; K44.9 Diaphragmatic hernia without obstruction or gangrene; K64.9 Unspecified hemorrhoids; F17.210 Nicotine dependence, cigarettes, uncomplicated; Z88.8 Allergy status to other drugs, medicaments and biological substances; Z91.040 Latex allergy status
CPT/HCPCS: 43239; 45378; 87081; 88305; J2250; J2704; J3010; J3490; J7120

== ENCOUNTER 2024-02-04 06:17 | Day surgery (SDC) | payer BC ==
[2024-02-04] MEDS: Sodium Chloride 0.9% 1,000 ML IV SCH (06:57)
[2024-02-04] MEDS ORDERED: fentaNYL 100 MCG/2 ML SDV ONE (07:19)
[2024-02-04] MEDS ORDERED: Propofol 200 MG/20 ML SDV ONE (07:22)
== END 2024-02-04 08:58 | disposition home or self-care (01) ==
LOC: JP.SDS 06:17
PROVIDERS: ATTEND Surgery
DX: K22.70 Barrett's esophagus without dysplasia (principal); K21.9 Gastro-esophageal reflux disease without esophagitis; K22.89 Other specified disease of esophagus; Z91.040 Latex allergy status; Z88.8 Allergy status to other drugs, medicaments and biological substances
CPT/HCPCS: 00731; 43239; J2704; J3010; J7030; 88305

== ENCOUNTER 2025-03-05 20:11 | Emergency (ER) | payer BC ==
[2025-03-05 20:49] LABS: BASOPHILS ABSOLUTE AUTO 0.15 K/uL (0.00-0.10); BASOPHILS PERCENT AUTO 1.1 % (0.1-1.3); EOSINOPHILS ABSOLUTE AUTO 0.48 K/uL (0.00-0.40); EOSINOPHILS PERCENT AUTO 3.5 % (0.0-5.4); IMMATURE GRAN ABSOLUTE AUTO 0.09 K/uL (0.00-0.23); IMMATURE GRAN PERCENT AUTO 0.7 % (0.0-0.7); LYMPHOCYTES ABSOLUTE AUTO 2.43 K/uL (0.8-3.3); LYMPHOCYTES PERCENT AUTO 17.6 % (11.4-47.7); MONOCYTES ABSOLUTE AUTO 2.46 K/uL (0.20-0.90); MONOCYTES PERCENT AUTO 17.9 % (3.3-12.6); NEUTROPHILS ABSOLUTE AUTO 8.16 K/uL (1.0-7.6); NEUTROPHILS PERCENT AUTO 59.2 % (40.0-78.1); PLATELET COUNT,PLT 337 K/uL (130-375); RED BLOOD CELL COUNT 4.92 M/uL (4.14-5.76); WHITE BLOOD CELL COUNT,WBC 13.8 K/uL (3.2-11.0)
[2025-03-05] MEDS: Sodium Chloride 0.9% 10 ML Syringe FLUSH ONE (21:04)
[2025-03-05] MEDS: Iopamidol 612 MG/ML 100 ML Bottle IV ONE (21:04)
[2025-03-05 21:11] LABS: A/G RATIO 0.9 (1.2-2.2); ALANINE AMINOTRANSFERASE,ALT 45 U/L (12-78); ASPARTATE AMNIOTRANSFERASE,AST 24 U/L (15-37); BILIRUBIN TOTAL 0.2 mg/dL (0.2-1.0); BLOOD UREA NITROGEN,BUN 11 mg/dL (7-18); CARBON DIOXIDE,CO2 26 mmol/L (21-32); CHLORIDE,CL 100 mmol/L (100-108); CREATININE 1.2 mg/dL (0.8-1.3); EST CRCL DRUG DOSING (CG) 78.61 mL/min; ESTIMATED GFR 71 mL/min (>60); GLUCOSE RANDOM 115 mg/dL (74-106); POTASSIUM,K 3.6 mmol/L (3.6-5.2); PROTEIN TOTAL,TP 6.9 g/dL (6.4-8.2); SODIUM,NA 135 mmol/L (140-148)
== END 2025-03-05 21:33 | disposition home or self-care (01) ==
LOC: JP.ED 20:11
DX: K52.9 Noninfective gastroenteritis and colitis, unspecified (principal); E78.00 Pure hypercholesterolemia, unspecified; K21.9 Gastro-esophageal reflux disease without esophagitis; F17.200 Nicotine dependence, unspecified, uncomplicated; Z91.040 Latex allergy status; Z88.8 Allergy status to other drugs, medicaments and biological substances; Z79.82 Long term (current) use of aspirin; Z79.899 Other long term (current) drug therapy
CPT/HCPCS: 36415; 74177; 80053; 83605; 85025; 99284; Q9967